=== PATIENT | male | born 1940 | race Caucasian/White ===

== ENCOUNTER 2017-03-19 04:55 | Inpatient (IN) | payer MEDICARE, OTHER ==
--- NOTE | ~2017-03-19 | HP ---
History And Physical [address] [place]. [address] NAME: JARROD YOON : 38 STATUS : ADM IN PAT#: [id number] AGE: 76 ADM/REG DATE : 03/19/17 MR#: [id number] REPORT SERV DATE: 03/19/17 DICTATED BY: CEFERINO GARCIA DATE: 03/19/17 REPORT STATUS : Draft TRANSCRIBED BY: MODJoe DATE: 03/19/17 DATE OF ADMISSION: 03/19/2017 REFERRING REASON: Chest pain and elevated troponin. HISTORY OF PRESENT ILLNESS: This is a pleasant 76-year-old, white gentleman, well known to Dr. Mcguire from [facility], who was admitted last night to Cardiology Service from the emergency room where he presented around 3 a.m. in the morning for severe substernal chest pressure which kept him awake. The patient has known coronary artery disease with remote history of CABG at [facility] in 2004 with several myocardial infarctions in 1994 and 2003. The last coronary arteriogram was in 2010, which revealed a patent venous graft to obtuse marginal and to LAD, but otherwise, calcific severe three-vessel disease. He had preserved systolic function at that time reportedly. The patient has elevated fasting glucose, but decided to take only cinnamon for it. He has seen insights strategist last time in 2016. In the absence of Dr. Mcguire, he saw Dr. Kaur, but then decided not to return for followup. The patient, basically stopped all the cardiac medication. He was taking only cinnamon. Surprisingly, he denies any recent chest pain until last night. He has one-day episode of mild dyspnea on exertion with activity but not at rest. He denied any palpitations, syncope, or lower extremity edema. The denied any recent chest pains. REVIEW OF SYSTEMS: The rest of review of systems is negative. PAST MEDICAL HISTORY: 1. Coronary artery disease with history of CABG in 2004, with last coronary arteriogram in 2010, without intervention. 2. Reported several myocardial infarctions in the past, most recent one in 2003. 3. Reported a history of preserved systolic function in 2010 by echocardiogram. 4. Hypertension, hyperlipidemia. 5. Likely untreated diabetes mellitus. 6. History of tongue cancer, treated with surgery in the remote past without chemotherapy or radiation. ALLERGIES: NO KNOWN DRUG ALLERGIES. SOCIAL HISTORY: The patient is . He is retired. He lives independently. He quit smoking 40 years ago, smoked for a few years. Denies drinking alcohol or using street drugs. FAMILY HISTORY: Negative for sudden cardiac deaths or premature coronary artery disease in the family. HOME MEDICATIONS: Cinnamon daily and vitamin. History And Physical [address] [address] NAME: JARROD YOON : 38 STATUS : ADM IN PAT#: [id number] AGE: 76 ADM/REG DATE : 03/19/17 MR#: [id number] REPORT SERV DATE: 03/19/17 DICTATED BY: CEFERINO GARCIA DATE: 03/19/17 REPORT STATUS : Draft TRANSCRIBED BY: MAVERICK DATE: 03/19/17 PHYSICAL EXAMINATION: GENERAL: No acute distress. VITAL SIGNS: Blood pressure 184/97, heart rate 94 and regular. HEENT: Pupils reactive to light and accommodation. Moist mucosa membrane. NECK: No JVD. Normal carotid upstroke. No carotid bruits. LUNGS: There are crackles at the bases of both lungs. COR: Normal S1, S2. No S3 or S4. No significant rub or murmurs. ABDOMEN: Obese, distended, nontender. EXTREMITIES: Lower extremities, decreased pedal pulses bilaterally but no edema. SKIN: Warm with normal turgor. MS: No kyphosis. NEURO/PSY: Alert and oriented. Nonfocal. DATA: CBC and electrolytes within normal limits. There is creatinine of 1.2, fasting glucose 230, BNP 341, troponin is 27. Chest x-ray was obtained, but the results are not available. Electrocardiogram revealed normal sinus rhythm, 87 beats per minute with signs of LVH and anteroseptal-inferior myocardial infarction with Q-waves. On monitor, he remained normal sinus rhythm. ASSESSMENT/PLAN: 1. Acute coronary syndrome/non ST-elevation myocardial infarction. 2. Diabetes mellitus. 3. Likely congestive heart failure. The patient will be closely monitored on monitored bed. We will continue intravenous heparin, aspirin, and nitroglycerin paste. We will start him on carvedilol, DARYL inhibitor, and statin. We will proceed tomorrow with coronary arteriogram. The risks and benefits were explained to the patient. He agreed to proceed. If he will be unstable, we will proceed tonight. We will also plan for echocardiogram tomorrow. We will ask our hospitalist colleagues to manage his newly diagnosed diabetes mellitus. I will give him intravenous diuretics for his lung congestion. Very likely, he has congestive heart failure. He will be started on electrolyte replacement protocol. Code status is full. The patient will see tomorrow Dr. Mcguire. OJL/ARMANDOL Ceferino Garcia M.D. / [id number] CC: Cayetano Gonzalez M.D.
--- NOTE | ~2017-03-19 | CN ---
Consultation Report [facility] [address] [place]. [address] NAME: JARROD YOON : 38 STATUS : ADM IN PAT#: [id number] AGE: 76 ADM/REG DATE : 03/19/17 MR#: [id number] REPORT SERV DATE: 03/19/17 DICTATED BY: ANGELICA MAGDALENO DATE: 03/19/17 REPORT STATUS : Draft TRANSCRIBED BY: MODL DATE: 03/19/17 CONSULTATION. DATE OF CONSULTATION: REASON FOR CONSULTATION: Diabetes mellitus. HISTORY OF PRESENT ILLNESS: This is a 76-year-old male patient who does have a history of CABG in 2004, came to the hospital with chest pain, started last night. Please see dictated H and P. HOSPITAL COURSE: The patient was admitted to hospital with chest pain and the patient was found to have diabetes according to the random blood glucose level and Hospitalist Service was called. According to the patient's information and history, he was diabetic and was on oral antidiabetic medication years ago. He said his primary care physician previously, Dr. Anirudh Barnes in [place] told him he has no longer diabetes anymore and at that time, he stopped all his medications and checking his blood sugar. He also said he has not been followed for diabetic diet anymore for the last few years. He normally eats 4 banana, ice cream sandwich, and then fried pig skin 2 to 3 bags a day and also he uses his , and he goes out to dinner for [place] food and he lives alone. He still drives a car and then he says he cooks his meal at home, but diet was mentioned above. He does not check his sugar as well. When he presented to the emergency room last night, his blood sugar was 230 and this morning, his blood sugar is being around 182 in the fasting lab. For his chest pain, he was diagnosed with a ega-KN-stsxdlvau SD with a troponin level of 27. The patient is scheduled to go for cardiac catheterization tomorrow. Currently, he does not have any symptoms including chest pain. He has no short of breath. No chest pain. He does not feel like he has dyspnea on exertion. He does not have any urinary tract symptoms or bowel movement change. No syncopes. No palpitation. No seizures. No vision changes. PAST MEDICAL HISTORY: 1. Coronary artery disease, status post CABG 2004. 2. Hypertension. 3. History of lung cancer, status post surgery and lymph node resection. 4. Chronic disease. 5. Also, he was diagnosed with tongue cancer 2007. Consultation Report [address] [address] NAME: JARROD YOON : 38 STATUS : ADM IN PAT#: [id number] AGE: 76 ADM/REG DATE : 03/19/17 MR#: [id number] REPORT SERV DATE: 03/19/17 DICTATED BY: ANGELICA MAGDALENO DATE: 03/19/17 REPORT STATUS : Draft TRANSCRIBED BY: MAVERICK DATE: 03/19/17 6. History of diabetes. SOCIAL HISTORY: He does not smoke. He quit smoking more than 50 years ago. He denies any alcohol use. He lives alone. He still drives a car. He still mows his own yard. He does have 2 children. MEDICATIONS AT HOME: 1. Vitamin C once a day. 2. Cinnamon 1000 mg once a day. 3. Centrum once a day. FAMILY HISTORY: Noncontributory for this illness. PHYSICAL EXAMINATION: VITAL SIGNS: Blood pressure 150/95, pulse is 93, temperature is 97.9, respiratory rate is 18, and saturation is 99% on room air. GENERAL APPEARANCE: He is alert, awake, very pleasant, male patient. HEENT: Pupils are equal, round, and reactive to light. EOMI intact. Conjunctivae not anemic. NECK: There are no nodes palpable. Carotid bruits audible on the left side. LUNGS: Both bases have crackles, otherwise clear. CARDIOVASCULAR: No murmur, rub, or gallop. He has a regular rhythm and rate. ABDOMEN: Bowel sounds present. Soft. There was no organomegaly appreciated. EXTREMITIES: There was no pitting edema. LABORATORY DATA: Laboratory showed sodium 140, potassium 4.5, chloride 107, BUN 21, and creatinine 1.21. WBC 8.3, hemoglobin 14.3, hematocrit of 44.3, and platelets 193. Troponin was 27. BNP was 341. Chest x-ray was evaluated by my own interpretation showed bibasilar vascular congestion. ASSESSMENT AND PLAN: 1. Diabetes mellitus. 2. Vpw-RF-jffpbppmo myocardial infarction. 3. Peripheral vascular disease. 4. ? cardiomyopathy. The patient is going through the cardiac workup for cardiology evaluation. We will obtain diabetic education again provided glucometer and then put him on the sliding scale for now and consider adding oral medication based on his other systems including the renal function. We will obtain A1c levels. He voiced understanding about the current plan of care. Consultation Report [id number] [facility] [place]. [address] NAME: JARROD YOON : 38 STATUS : ADM IN PAT#: [id number] AGE: 76 ADM/REG DATE : 03/19/17 MR#: [id number] REPORT SERV DATE: 03/19/17 DICTATED BY: ANGELICA MAGDALENO DATE: 03/19/17 REPORT STATUS : Draft TRANSCRIBED BY: MODJoe DATE: 03/19/17 EKL/MAVERICK Angelica Magdaleno M.D. / [id number] CC: Cayetano Gonzalez M.D.
[2017-03-19 04:15] LABS: BASOPHILS 0.2 %; BASOPHILS ABSOLUTE 0.02 10/3/uL (0.0-0.16); EOSINOPHILS 0.8 %; EOSINOPHILS ABSOLUTE 0.07 10/3/uL (0.0-0.53); HEMATOCRIT 44.3 % (40.0-51.0); HEMOGLOBIN 14.3 g/dL (13.6-17.8); IMMATURE GRANULOCYTES 0.4 %; IMMATURE GRANULOCYTES ABSOLUTE 0.03 10/3/uL (0.0-0.11); LYMPHOCYTES 17.2 %; LYMPHOCYTES ABSOLUTE 1.43 10/3/uL (0.67-4.30); MEAN CORPUS HGB CONC 32.3 g/dL (32.0-36.0); MEAN CORPUSCULAR HEMOGLOB 28.9 pg (26.0-34.0); MEAN CORPUSCULAR VOLUME 89.7 fL (80-100); MEAN PLATELET VOLUME 11.4 fL (9.2-13.0); MONOCYTES 8.4 %; NEUTROPHILS ABSOLUTE 6.08 10/3/uL (2.02-8.40); PLATELET COUNT 193 10/3/uL (150-400); RBC DISTRIBUTION WIDTH 14.2 % (12.0-16.0); RED CELL COUNT 4.94 10/6/uL (4.7-6.1); WHITE BLOOD CELLS 8.3 10/3/uL (4.5-10.5)
[2017-03-19 04:16] LABS: MANUAL DIFF NO %
[2017-03-19 04:30] LABS: CALCIUM, SERUM 8.9 MG/DL (8.5-10.4); CHLORIDE, SERUM 107 MMOL/L (96-112); CO2 (CARBON DIOXIDE) 28 MMOL/L (24-34); CREATININE 1.21 MG/DL (0.70-1.30); GFR AFRICAN AMERICAN 66 ML/MIN (>=60); GFR NON AFRICAN AMERICAN 57 ML/MIN (>=60); POTASSIUM, SERUM 4.5 MMOL/L (3.5-5.3); SODIUM, SERUM 140 MMOL/L (135-148)
[2017-03-19 04:31] LABS: PARTIAL THROMBO TIME 26.4 SEC (22.5-37.2); PROTIME (NOT ORD) 13.1 SEC (12.0-14.5)
[2017-03-19 04:37] LABS: BUN (BLOOD UREA NITROGEN) 21 MG/DL (6-23); GLUCOSE, SERUM 230 MG/DL (60-99)
[2017-03-19 04:38] LABS: CHEST PAIN PROFILE TAT 0 Hrs 29 Mins
[~2017-03-19 04:55] MED LIST: CINNAMON +CHROMIUM PO; COREG25 PO; DIOVAN HCT160 MG/25 PO; FLAXSEED OIL1000 MG PO; GARLIC PO; HALF81 PO; SAW PALMETTO PO; VITC500 PO; VITE PO
[2017-03-19] MEDS ORDERED: CENTRUM PO (05:17)
[2017-03-19] MEDS ORDERED: CINNAMONPO PO (05:18)
[2017-03-19] MEDS ORDERED: VITC500 PO (05:18)
[2017-03-19 08:43] LABS: CHOL/HDL RATIO(NOT ORDER) 7.1 (0-5); CHOLESTEROL 233 MG/DL (< 200); HDL CHOLESTEROL 33 MG/DL (> 39); LDL CHOLESTEROL 183 MG/DL (< 130); NON-HDL CHOLESTEROL 200 MG/DL (< 160); SGPT(ALT) 38 U/L (5-65); TRIGLYCERIDE 89 MG/DL (< 150)
[2017-03-19 10:17] LABS: CHOL/HDL RATIO(NOT ORDER) 6.1 (0-5); TROPONIN I 30.9 NG/ML (<0.05)
[2017-03-19 12:38] LABS: ASCORBIC ACID (UR NOT ORDER) 20 (NEG); BILIRUBIN, URINE NEGATIVE (NEG); KETONE, URINE NEGATIVE (NEG); LEUKOCYTE ESTERASE(NOT OR SMALL (NEG); WBC (NOT ORDERED) (RFLEX) 3 (0-5)
[2017-03-20 07:04] LABS: BASOPHILS 0.2 %; BASOPHILS ABSOLUTE 0.02 10/3/uL (0.0-0.16); EOSINOPHILS 0.5 %; EOSINOPHILS ABSOLUTE 0.05 10/3/uL (0.0-0.53); HEMOGLOBIN 14.3 g/dL (13.6-17.8); IMMATURE GRANULOCYTES 0.3 %; IMMATURE GRANULOCYTES ABSOLUTE 0.03 10/3/uL (0.0-0.11); LYMPHOCYTES 17.4 %; LYMPHOCYTES ABSOLUTE 1.65 10/3/uL (0.67-4.30); MEAN CORPUS HGB CONC 32.5 g/dL (32.0-36.0); MEAN CORPUSCULAR HEMOGLOB 28.8 pg (26.0-34.0); MEAN CORPUSCULAR VOLUME 88.5 fL (80-100); MEAN PLATELET VOLUME 11.4 fL (9.2-13.0); MONOCYTES 12.7 %; NEUTROPHILS 68.9 %; NEUTROPHILS ABSOLUTE 6.52 10/3/uL (2.02-8.40); PLATELET COUNT 173 10/3/uL (150-400); RED CELL COUNT 4.97 10/6/uL (4.7-6.1); WHITE BLOOD CELLS 9.5 10/3/uL (4.5-10.5)
[2017-03-20 07:10] LABS: MANUAL DIFF NO %
[2017-03-20 07:21] LABS: BUN (BLOOD UREA NITROGEN) 20 MG/DL (6-23); CALCIUM, SERUM 8.9 MG/DL (8.5-10.4); CHLORIDE, SERUM 102 MMOL/L (96-112); CO2 (CARBON DIOXIDE) 24 MMOL/L (24-34); CREATININE 1.12 MG/DL (0.70-1.30); GFR AFRICAN AMERICAN 73 ML/MIN (>=60); GFR NON AFRICAN AMERICAN 63 ML/MIN (>=60); GLUCOSE, SERUM 211 MG/DL (60-99); SODIUM, SERUM 135 MMOL/L (135-148)
[2017-03-21 05:18] LABS: BASOPHILS 0.1 %; BASOPHILS ABSOLUTE 0.01 10/3/uL (0.0-0.16); EOSINOPHILS 0.5 %; EOSINOPHILS ABSOLUTE 0.04 10/3/uL (0.0-0.53); HEMATOCRIT 40.8 % (40.0-51.0); HEMOGLOBIN 13.8 g/dL (13.6-17.8); IMMATURE GRANULOCYTES 0.4 %; IMMATURE GRANULOCYTES ABSOLUTE 0.03 10/3/uL (0.0-0.11); LYMPHOCYTES 14.2 %; MANUAL DIFF NO %; MEAN CORPUS HGB CONC 33.8 g/dL (32.0-36.0); MEAN CORPUSCULAR HEMOGLOB 29.5 pg (26.0-34.0); MEAN CORPUSCULAR VOLUME 87.2 fL (80-100); MEAN PLATELET VOLUME 11.1 fL (9.2-13.0); MONOCYTES 12.9 %; MONOCYTES ABSOLUTE 1.09 10/3/uL (0.21-1.20); NEUTROPHILS 71.9 %; NEUTROPHILS ABSOLUTE 6.07 10/3/uL (2.02-8.40); PLATELET COUNT 169 10/3/uL (150-400); RBC DISTRIBUTION WIDTH 14.1 % (12.0-16.0); RED CELL COUNT 4.68 10/6/uL (4.7-6.1); WHITE BLOOD CELLS 8.4 10/3/uL (4.5-10.5)
[2017-03-21 05:27] LABS: BUN (BLOOD UREA NITROGEN) 18 MG/DL (6-23); CALCIUM, SERUM 8.9 MG/DL (8.5-10.4); CHLORIDE, SERUM 104 MMOL/L (96-112); CO2 (CARBON DIOXIDE) 24 MMOL/L (24-34); CREATININE 1.24 MG/DL (0.70-1.30); GFR AFRICAN AMERICAN 64 ML/MIN (>=60); GFR NON AFRICAN AMERICAN 55 ML/MIN (>=60); GLUCOSE, SERUM 184 MG/DL (60-99); POTASSIUM, SERUM 4.1 MMOL/L (3.5-5.3); SODIUM, SERUM 136 MMOL/L (135-148)
[2017-03-22] MEDS ORDERED: ASAB PO (09:15)
[2017-03-22] MEDS ORDERED: LIPITOR80 MG PO (09:16)
[2017-03-22] MEDS ORDERED: COREG12 PO (09:16)
[2017-03-22] MEDS ORDERED: PLAVIX PO (09:17)
[2017-03-22] MEDS ORDERED: NTG150 SL (09:20)
[2017-03-22] MEDS ORDERED: AMARYL1 MG PO (10:58)
[2017-03-31] MEDS ORDERED: COREG12 PO (21:41)
[2017-03-31] MEDS ORDERED: PLAVIX PO (21:41)
[2017-03-31] MEDS ORDERED: LIPITOR80 MG PO (21:41)
[2017-03-31] MEDS ORDERED: AMARYL1 MG PO (21:41)
[2017-03-31] MEDS ORDERED: NITROSTAT0.4 MG SL (21:42)
== END 2017-03-22 14:48 | disposition home or self-care (01) | DRG 246 ==
LOC: ER 04:55 → 5NO 06:02 → SSU1 03-20 11:12 → 5NO 03-21 11:17
PROVIDERS: Internal Medicine Cardiovascular Disease; Specialist; Thoracic Surgery (Cardiothoracic Vascular Surgery)
PROC: 4A023N7 Measurement of Cardiac Sampling and Pressure, Left Heart, Percutaneous Approach (ICD-10-PCS; principal; 2017-03-20)
PROC: 027034Z Dilation of Coronary Artery, One Artery with Drug-eluting Intraluminal Device, Percutaneous Approach (ICD-10-PCS; 2017-03-20)
PROC: B2111ZZ Fluoroscopy of Multiple Coronary Arteries using Low Osmolar Contrast (ICD-10-PCS; 2017-03-20)
PROC: B2151ZZ Fluoroscopy of Left Heart using Low Osmolar Contrast (ICD-10-PCS; 2017-03-20)
PROC: B2131ZZ Fluoroscopy of Multiple Coronary Artery Bypass Grafts using Low Osmolar Contrast (ICD-10-PCS; 2017-03-20)
PROC: B2181ZZ Fluoroscopy of Left Internal Mammary Bypass Graft using Low Osmolar Contrast (ICD-10-PCS; 2017-03-20)
DX: I21.4 Non-ST elevation (NSTEMI) myocardial infarction (principal); I50.21 Acute systolic (congestive) heart failure; I25.810 Atherosclerosis of coronary artery bypass graft(s) without angina pectoris; E11.9 Type 2 diabetes mellitus without complications; Z95.1 Presence of aortocoronary bypass graft; Z85.118 Personal history of other malignant neoplasm of bronchus and lung; Z85.810 Personal history of malignant neoplasm of tongue; Z87.891 Personal history of nicotine dependence; I73.9 Peripheral vascular disease, unspecified; I11.0 Hypertensive heart disease with heart failure
CPT/HCPCS: 71010; 71020; 80048; 80061; 81001; 82962; 83036; 83735; 83880; 84460; 84484; 85025; 85610; 85730; 87086; 93005; 93459; 99152; 99153; A9270-GY; C1725; C1760; C1769; C1874; C1887; C8929; C9600; J0583; J2250; J3010; Q9957; Q9967

== ENCOUNTER 2017-03-23 20:47 | Emergency (ER) | payer MEDICARE, OTHER ==
[~2017-03-23 20:47] MED LIST changes: +AMARYL1 MG PO; +ASAB PO; +CENTRUM PO; +CINNAMONPO PO; +COREG12 PO; +LIPITOR80 MG PO; +NTG150 SL; +PLAVIX PO
[2017-03-23 21:06] LABS: BASOPHILS 0.1 %; BASOPHILS ABSOLUTE 0.01 10/3/uL (0.0-0.16); EOSINOPHILS 1.9 %; EOSINOPHILS ABSOLUTE 0.13 10/3/uL (0.0-0.53); HEMATOCRIT 38.9 % (40.0-51.0); HEMOGLOBIN 13.2 g/dL (13.6-17.8); IMMATURE GRANULOCYTES 0.3 %; IMMATURE GRANULOCYTES ABSOLUTE 0.02 10/3/uL (0.0-0.11); LYMPHOCYTES 13.5 %; LYMPHOCYTES ABSOLUTE 0.91 10/3/uL (0.67-4.30); MEAN CORPUS HGB CONC 33.9 g/dL (32.0-36.0); MEAN CORPUSCULAR HEMOGLOB 29.5 pg (26.0-34.0); MEAN CORPUSCULAR VOLUME 86.8 fL (80-100); MEAN PLATELET VOLUME 11.8 fL (9.2-13.0); MONOCYTES ABSOLUTE 0.94 10/3/uL (0.21-1.20); NEUTROPHILS 70.2 %; NEUTROPHILS ABSOLUTE 4.71 10/3/uL (2.02-8.40); PLATELET COUNT 211 10/3/uL (150-400); RBC DISTRIBUTION WIDTH 14.1 % (12.0-16.0); RED CELL COUNT 4.48 10/6/uL (4.7-6.1); WHITE BLOOD CELLS 6.7 10/3/uL (4.5-10.5)
[2017-03-23 21:07] LABS: MANUAL DIFF NO %
[2017-03-23 21:18] LABS: INTERNATIONAL NORMAL RATI 1.2 UNITS (-); PROTIME (NOT ORD) 14.6 SEC (12.0-14.5)
[2017-03-23 21:19] LABS: PARTIAL THROMBO TIME 35.2 SEC (22.5-37.2)
[2017-03-23 21:28] LABS: CALCIUM, SERUM 8.5 MG/DL (8.5-10.4); CHLORIDE, SERUM 104 MMOL/L (96-112); CO2 (CARBON DIOXIDE) 25 MMOL/L (24-34); CREATININE 1.28 MG/DL (0.70-1.30); GFR AFRICAN AMERICAN 62 ML/MIN (>=60); GFR NON AFRICAN AMERICAN 53 ML/MIN (>=60); POTASSIUM, SERUM 4.3 MMOL/L (3.5-5.3); SODIUM, SERUM 137 MMOL/L (135-148)
[2017-03-23 21:29] LABS: BUN (BLOOD UREA NITROGEN) 26 MG/DL (6-23); CHEST PAIN PROFILE TAT 0 Hrs 29 Mins; GLUCOSE, SERUM 97 MG/DL (60-99); TROPONIN I 6.26 NG/ML (<0.05)
[2017-03-31] MEDS ORDERED: AMARYL1 MG PO (21:41)
[2017-03-31] MEDS ORDERED: LIPITOR80 MG PO (21:41)
[2017-03-31] MEDS ORDERED: PLAVIX PO (21:41)
[2017-03-31] MEDS ORDERED: COREG12 PO (21:41)
[2017-03-31] MEDS ORDERED: NITROSTAT0.4 MG SL (21:42)
== END 2017-03-23 22:37 | disposition home or self-care (01) ==
LOC: ER 20:47
PROVIDERS: Nurse Practitioner
DX: I25.10 Atherosclerotic heart disease of native coronary artery without angina pectoris (principal); I25.2 Old myocardial infarction; Z95.1 Presence of aortocoronary bypass graft; E11.9 Type 2 diabetes mellitus without complications; Z85.810 Personal history of malignant neoplasm of tongue; Z87.891 Personal history of nicotine dependence; Z79.899 Other long term (current) drug therapy; Z79.82 Long term (current) use of aspirin
CPT/HCPCS: 71010; 80048; 83735; 84484; 85025; 85610; 85730; 93005; 99285

== ENCOUNTER 2017-03-31 22:09 | Inpatient (IN) | payer MEDICARE, OTHER ==
--- NOTE | ~2017-03-31 | HP ---
History And Physical [id number] [place]. [address] NAME: JARROD YOON : 38 STATUS : ADM IN [facility]#: [id number] AGE: 76 ADM/REG DATE : 03/31/17 MR#: [id number] REPORT SERV DATE: 04/01/17 DICTATED BY: TY HELMS DATE: 04/01/17 REPORT STATUS : Draft TRANSCRIBED BY: MODL DATE: 04/01/17 DATE OF ADMISSION: 03/31/2017 HISTORY OF PRESENT ILLNESS: Mr. Yoon is a 76-year-old white male, who was here two weeks ago with a non-ST elevation KS, troponin reached 30. Subsequent to that, he did receive a stent to a protected left main feeding a diagonal branch. He was found to have significant diffuse small-vessel disease involving the to LAD and also involving the right coronary artery which has had severe disease for many years. Those were treated medically. The patient says he felt better after the stent procedure and has had no chest discomfort that was when he presented with initially two weeks ago. However, he did experience rapid and severe shortness of breath. Last night came into the emergency room with a blood pressure of 200/100 and flash pulmonary edema on his chest x-ray. He was in respiratory distress, but responded to IV Lasix, to IV nitroglycerin, and also to BiPAP. This morning, he is feeling much better, but still has some mild shortness of breath. His blood pressure is controlled. PAST MEDICAL HISTORY: As outlined above. ALLERGIES: NONE. MEDICATIONS: Lipitor, Coreg, Plavix, aspirin, glimepiride, and sublingual nitroglycerin as needed. SOCIAL HISTORY: He is a nonsmoker. FAMILY HISTORY: Positive for heart disease. SURGICAL HISTORY: As listed above. REVIEW OF SYSTEMS: Otherwise, all negative. PHYSICAL EXAMINATION: VITAL SIGNS: Initial blood pressure 200/120, now that is 126/60, heart rate initially 120, now that 77. GENERAL: The patient is a somewhat elderly frail appearing white male. He is slightly forgetful. HEENT: Pupils equal, round, and reactive to light and accommodation. Extraocular muscles intact. NECK: Supple. Trachea midline. No carotid bruits. CHEST: Clear. HEART: PMI midclavicular line. Regular rate and rhythm. No significant murmur. ABDOMEN: Soft, nontender. EXTREMITIES: No clubbing, cyanosis, or edema. NEURO: Nonfocal. History And Physical [address] [address] NAME: JARROD YOON : 38 STATUS : ADM IN PAT#: [id number] AGE: 76 ADM/REG DATE : 03/31/17 MR#: [id number] REPORT SERV DATE: 04/01/17 DICTATED BY: TY HELMS DATE: 04/01/17 REPORT STATUS : Draft TRANSCRIBED BY: MODL DATE: 04/01/17 DATA: His current troponin is 1.17. He has a BNP of 700. He has a creatinine of 1.49. We have an echo from 03/20/2017 showing EF 30% with inferior akinesis and apical dyskinesis. We have a 12-lead EKG that shows sinus rhythm with an incomplete left bundle branch block. CLINICAL IMPRESSIONS: 1. Flash pulmonary edema with a blood pressure of 200/100. 2. Had a drug-coated stent to a protected left main two weeks ago. He did feel better after the stent with no further chest pain. 3. Non-ST elevation myocardial infarction two weeks ago with troponin of 30. 4. Current troponin 1.17. 5. An echocardiogram performed 03/20/2017 showing ejection fraction 30%. PLAN: 1. We will recheck his echo for mechanical complication from his event two weeks ago. 2. We will check cardiac enzymes. 3. Check a renal artery duplex. 4. Possible heart catheterization, relook at the stent and other anatomy on Monday. In the meantime, we will give him gentle diuresis and also IV heparin. [facility]/MAVERICK Ty Helms M.D. / [id number] CC: Ty Helms M.D.
--- NOTE | ~2017-03-31 | DS ---
Discharge Summary [facility] [address] [place]. [address] NAME: JARROD YOON : 38 STATUS : DIS IN PAT#: [id number] AGE: 76 ADM/REG DATE : 03/31/17 MR#: [id number] REPORT SERV DATE: 04/15/17 DICTATED BY: CHUY MCGUIRE DATE: 04/14/17 REPORT STATUS : Draft TRANSCRIBED BY: MAVERICK DATE: 04/14/17 Data Collection from hospitalization DISCHARGE DIAGNOSES: 1. Acute/chronic systolic congestive heart failure. 2. Coronary artery disease. 3. Nonsustained ventricular tachycardia. 4. Type 2 diabetes mellitus. 5. Hypertension. 6. History of xws-FN-rxprlfurn myocardial infarction. 7. Hyperlipidemia. 8. History of tongue cancer. 9. History of lung cancer. 10.Former smoker. CONSULTATION: Dr. Lam Mercado. PROCEDURES PERFORMED: 1. Cardiac catheterization, 04/04/2017. 2. Color flow ultrasound of the kidneys, 04/01/2017. MEDICATIONS: Lipitor 80 mg at bedtime, Norvasc 5 mg twice a day, aspirin 81 mg daily, Coreg 25 mg twice a day, Plavix 75 mg daily, Isordil 40 mg twice a day, Lasix 20 mg daily with KCl 10 mEq daily as needed for two pounds weight gain or more in 48 hours, Nitrostat 0.4 mg sublingually as needed. CONDITION AT DISCHARGE: Stable. DISPOSITION: The patient was discharged to [facility] on a low-sodium, 1800- calorie cardiac/diabetic diet with activities as instructed. He would follow up with me, 04/14/2017. He would follow up with Dr. Barry Mock, 06/13/2017. He would follow up for an outpatient echo, 06/06/2017. HOSPITAL COURSE: This is a 76-year-old man, who had presented here two weeks prior to this admission with a lij-RM-bweaedukk myocardial infarction. Troponin had reached 30. Subsequent to that, he did receive a stent to a protected left main feeding a diagonal branch. He was found to have significant diffuse small vessel disease, involving the to the LAD and also involving the right coronary artery, which has had severe disease for many years. Those were treated medically. The patient said he was feeling better after the stent procedure. He had no chest discomfort; however, he did begin to experience rapid and severe shortness of breath. On the night prior to this admission, he came to the emergency room and was found to have a blood pressure of 200/100 and flash pulmonary edema on his chest x-ray. He was in respiratory distress, but responded to IV Lasix and IV nitroglycerin and also to BiPAP. On the morning of this admission, he was feeling much better, but still had some mild shortness of breath. His blood pressure was controlled. He was admitted to the hospital at this time for further evaluation and treatment. Upon admission, his troponin was 1.17. BNP was 700. He had a creatinine level of 1.49. Discharge Summary [address] [address] NAME: JARROD YOON : 38 STATUS : DIS IN [facility]#: [id number] AGE: 76 ADM/REG DATE : 03/31/17 MR#: [id number] REPORT SERV DATE: 04/15/17 DICTATED BY: CHUY MCGUIRE DATE: 04/14/17 REPORT STATUS : Draft TRANSCRIBED BY: MAVERICK DATE: 04/14/17 His echocardiogram from 03/20/2017 showed an ejection fraction of 30% with inferior akinesis and apical dyskinesis. A 12-lead EKG showed sinus rhythm with incomplete left bundle-branch block. We were going to recheck his echo for mechanical complication from his event two weeks ago. We were also going to check cardiac enzymes and renal artery duplex. It was felt that he may possibly need to undergo a cardiac catheterization to relook at the stent and other anatomy. In the mean time, he would receive gentle diuresis and IV heparin. Color flow ultrasound of the kidneys was performed. There was no evidence of renal artery stenosis. Echocardiogram was performed. The patient was seen by Dr. Lam Mercado regarding type 2 diabetes mellitus management. The patient does have type 2 diabetes mellitus and hypertension. At this time, his chronic medical problems were stable and treatment of adz-FG-xthcuomdq myocardial infarction would be deferred to the primary team. His recommendation was to discontinue glimepiride as this was long-acting and if the patient remained n.p.o., this may cause severe hypoglycemia. He was going to be started on level 2 sliding scale insulin. We would check a hemoglobin A1c for comparison. He reports that his glucoses have been well managed on glimepiride down in the 90s to the 110s. At this time, there was no need for diabetic education or other intervention. He had recently obtained this during his previous admissions. The following day, telemetry revealed nonsustained ventricular tachycardia. Troponin was now 1.2. Chest x-ray showed probable pulmonary edema. Echocardiogram showed ejection fraction of 30%. Coreg dose was increased. Gentle IV diuretic was being provided. He was in no distress. It was planned to perform a cardiac catheterization in the next couple of days. His oral metformin would be resumed at discharge. He had no complaints of chest pain. On the , he was taken to the [facility], where he underwent the above-mentioned procedure by Dr. Xavier Gonsales. He tolerated this well and there were no complications. On 04/05/2017, he was alert and cooperative. His lungs were clear. He had no edema. He was being diuresed as needed. Arrangements were being made for a LifeVest to be placed. He continued to do well. He said he was feeling good. He was evaluated by Physical Therapy. His daily weights and sodium restriction were discussed. We reviewed daily weights and sodium restriction as well as the use of Lasix as needed for two pounds weight gain/48 hours. Discharge planning was performed. On 04/08/2017, he was comfortable. The LifeVest was in place. Discharge instructions were given. Due to his improved and stable condition, he was discharged to [facility] with the above-stated instructions. Information collected by: Laura Chowdhury I submit the above information as my discharge summary. TG/MODL Chuy Mcguire M.D. / [id number] CC: Xavier Gonsales M.D. [facility]
--- NOTE | ~2017-03-31 | CN ---
Consultation Report [facility] [address] [place]. [address] NAME: JARROD YOON : 38 STATUS : ADM IN PAT#: [id number] AGE: 76 ADM/REG DATE : 03/31/17 MR#: [id number] REPORT SERV DATE: 04/01/17 DICTATED BY: LAM MERCADO DATE: 04/01/17 REPORT STATUS : Draft TRANSCRIBED BY: MODL DATE: 04/01/17 CONSULTATION DATE OF CONSULTATION: 04/01/2017 REASON FOR CONSULTATION: Type 2 diabetes mellitus management. IMPRESSION: 1. Type 2 diabetes mellitus. 2. Hypertension. 3. Zla-WR-osvuqgelf myocardial infarction. 4. Coronary artery disease with a decreased ejection fraction of 30%. 5. Hyperlipidemia. 6. History of tongue cancer in 2007, treated surgically. 7. History of lung cancer, status post surgery and node resection. PLAN: At this time, his chronic medical problems are stable and treatment of non-ST- elevation myocardial infarction will be deferred to the primary team. My recommendation will be to discontinue glimepiride as this is long-acting and if the patient remains n.p.o. this may cause severe hypoglycemia. We will start patient on level 2 sliding scale insulin. We will check a hemoglobin A1c for comparison as he was here approximately 30 days ago and he reports that his glucoses have been well managed on glimepiride down in the 90s to 1 teens. At this time, there is no need for diabetic education or other intervention as he just recently had that on his previous admission. We thank you for this consultation and we will follow with you. BRIEF HISTORY OF PRESENT ILLNESS: The patient is a 76-year-old male presented again to the hospital with what appeared to be a xus-ZI-vgctkkoka myocardial infarction with an elevated troponin. So, he was admitted by Cardiology. Medicine Service was consulted because the patient has diabetes and needed further management. This patient denies any hypoglycemia. He has not had any nausea, vomiting. He currently has no chest pain. He has not had any fever, chills, or any other constitutional symptoms. REVIEW OF SYSTEMS: A 10-point review of systems otherwise is negative. PAST MEDICAL HISTORY: Coronary artery disease, status post CABG in 2004, hypertension, history of lung cancer, status post surgery and lymph node resection, chronic obstructive pulmonary disease. He also was diagnosed with tongue cancer with resection in 2007. He supposedly had a history of type 2 diabetes mellitus. PAST SURGICAL HISTORY: As mentioned in the past medical history. ALLERGIES: NO KNOWN DRUG ALLERGIES. Consultation Report [address] [place]. [address] NAME: JARROD YOON : 38 STATUS : ADM IN PAT#: [id number] AGE: 76 ADM/REG DATE : 03/31/17 MR#: [id number] REPORT SERV DATE: 04/01/17 DICTATED BY: LAM MERCADO DATE: 04/01/17 REPORT STATUS : Draft TRANSCRIBED BY: MAVERICK DATE: 04/01/17 HOME MEDICATIONS: Lipitor 80 mg once at bedtime, Coreg 12.5 mg twice daily, Plavix 75 mg once daily, glimepiride 1 mg twice daily, Nitrostat 0.4 sublingual p.r.n. for chest pain. SOCIAL HISTORY: He does not smoke. He quit smoking more than 50+ years ago. He denies any alcohol use. He lives alone. He still drives car and is active and self sufficient in all ADLs. FAMILY HISTORY: Noncontributory for this encounter reviewed with the patient. PHYSICAL EXAMINATION: GENERAL: White male sitting on the chair appears to be in no obvious respiratory distress. He is awake and alert. He is oriented. VITAL SIGNS: Blood pressure is 124/61, pulse is 72, temperature is 96.5, saturation of 97% on 3 L of nasal cannula. HEENT: Normal. Oropharynx without lesions. NECK: Supple. HEART: Regular rate and rhythm. No murmurs, rubs, or gallops are heard. LUNGS: Clear to auscultation. ABDOMEN: Soft, nontender. Good bowel sounds. EXTREMITIES: Without cyanosis, clubbing, or edema. There are no lesions. NEUROLOGICAL: Seems to be grossly intact. LABORATORY DATA: Sodium of 135, potassium 4.5, chloride is 103, bicarb is 23, BUN is 15, creatinine is 1.49. Last creatinine on previous admission was 1.24 and 1.28. His glucose was 265. Liver function studies are negative. Troponin is 1.68. His BNP on this admission was 769. Last known hemoglobin on 03/19/2017 was 7.6. CBC was completely normal. Chest x-ray, severe failure, vkfw-rd-tbwthfet cardiomegaly. Renal artery duplex are done, but report is pending. Once again, we thank you for this consultation. We will follow with you. NANCY/MAVERICK Lam Mercado M.D. / [id number] CC: Xavier Gonsales M.D.
[2017-03-31 21:46] LABS: BASOPHILS 0.2 %; BASOPHILS ABSOLUTE 0.02 10/3/uL (0.0-0.16); EOSINOPHILS 1.5 %; EOSINOPHILS ABSOLUTE 0.13 10/3/uL (0.0-0.53); HEMATOCRIT 42.7 % (40.0-51.0); HEMOGLOBIN 14.1 g/dL (13.6-17.8); IMMATURE GRANULOCYTES 0.5 %; IMMATURE GRANULOCYTES ABSOLUTE 0.04 10/3/uL (0.0-0.11); LYMPHOCYTES 18.7 %; LYMPHOCYTES ABSOLUTE 1.58 10/3/uL (0.67-4.30); MEAN CORPUSCULAR HEMOGLOB 29.1 pg (26.0-34.0); MEAN CORPUSCULAR VOLUME 88.2 fL (80-100); MEAN PLATELET VOLUME 11.6 fL (9.2-13.0); MONOCYTES 10.2 %; MONOCYTES ABSOLUTE 0.86 10/3/uL (0.21-1.20); NEUTROPHILS 68.9 %; NEUTROPHILS ABSOLUTE 5.82 10/3/uL (2.02-8.40); RBC DISTRIBUTION WIDTH 13.9 % (12.0-16.0); RED CELL COUNT 4.84 10/6/uL (4.7-6.1); WHITE BLOOD CELLS 8.5 10/3/uL (4.5-10.5)
[2017-03-31 21:47] LABS: MANUAL DIFF NO %; PLATELET COUNT 365 10/3/uL (150-400)
[2017-03-31 21:55] LABS: INTERNATIONAL NORMAL RATI 1.2 UNITS (-); PARTIAL THROMBO TIME 29.9 SEC (22.5-37.2); PROTIME (NOT ORD) 15.2 SEC (12.0-14.5)
[2017-03-31 22:03] LABS: BUN (BLOOD UREA NITROGEN) 15 MG/DL (6-23); CALCIUM, SERUM 8.5 MG/DL (8.5-10.4); CHEST PAIN PROFILE TAT 0 Hrs 23 Mins; CHLORIDE, SERUM 103 MMOL/L (96-112); CO2 (CARBON DIOXIDE) 23 MMOL/L (24-34); CREATININE 1.49 MG/DL (0.70-1.30); GFR AFRICAN AMERICAN 51 ML/MIN (>=60); GFR NON AFRICAN AMERICAN 44 ML/MIN (>=60); GLUCOSE, SERUM 265 MG/DL (60-99); POTASSIUM, SERUM 4.5 MMOL/L (3.5-5.3); SODIUM, SERUM 135 MMOL/L (135-148); TROPONIN I 1.17 NG/ML (<0.05)
[~2017-03-31 22:09] MED LIST changes: +NITROSTAT0.4 MG SL
[2017-04-01 10:49] LABS: CK-MB 3.9 NG/ML; CPK 82 U/L (0-200); TROPONIN I 1.68 NG/ML (<0.05)
[2017-04-01 18:36] LABS: CK-MB 2.8 NG/ML; CPK 67 U/L (0-200); TROPONIN I 1.22 NG/ML (<0.05)
[2017-04-02 05:37] LABS: BASOPHILS 0.2 %; BASOPHILS ABSOLUTE 0.01 10/3/uL (0.0-0.16); EOSINOPHILS 2.7 %; EOSINOPHILS ABSOLUTE 0.15 10/3/uL (0.0-0.53); IMMATURE GRANULOCYTES 0.2 %; IMMATURE GRANULOCYTES ABSOLUTE 0.01 10/3/uL (0.0-0.11); LYMPHOCYTES 24.5 %; LYMPHOCYTES ABSOLUTE 1.35 10/3/uL (0.67-4.30); MEAN CORPUSCULAR HEMOGLOB 28.9 pg (26.0-34.0); MEAN CORPUSCULAR VOLUME 87.4 fL (80-100); MEAN PLATELET VOLUME 11.5 fL (9.2-13.0); MONOCYTES 9.2 %; MONOCYTES ABSOLUTE 0.51 10/3/uL (0.21-1.20); NEUTROPHILS 63.2 %; NEUTROPHILS ABSOLUTE 3.49 10/3/uL (2.02-8.40); PLATELET COUNT 294 10/3/uL (150-400); RBC DISTRIBUTION WIDTH 13.8 % (12.0-16.0); RED CELL COUNT 3.88 10/6/uL (4.7-6.1); WHITE BLOOD CELLS 5.5 10/3/uL (4.5-10.5)
[2017-04-02 05:49] LABS: HEMATOCRIT 33.9 % (40.0-51.0); HEMOGLOBIN 11.2 g/dL (13.6-17.8)
[2017-04-02 05:50] LABS: MANUAL DIFF NO %
[2017-04-02 05:54] LABS: A/G RATIO 0.7 (0.7-1.9); ALBUMIN 2.3 G/DL (3.5-5.0); ALKALINE PHOSPHATASE 70 U/L (45-117); CALCIUM, SERUM 8.2 MG/DL (8.5-10.4); CHLORIDE, SERUM 105 MMOL/L (96-112); CO2 (CARBON DIOXIDE) 26 MMOL/L (24-34); CREATININE 1.12 MG/DL (0.70-1.30); GFR AFRICAN AMERICAN 73 ML/MIN (>=60); GFR NON AFRICAN AMERICAN 63 ML/MIN (>=60); GLOBULIN 3.5 G/DL (2.5-4.1); POTASSIUM, SERUM 3.8 MMOL/L (3.5-5.3); SGOT(AST) 22 U/L (5-40); SGPT(ALT) 31 U/L (5-65); SODIUM, SERUM 139 MMOL/L (135-148); TOTAL BILIRUBIN 0.5 MG/DL (0-1.2); TOTAL PROTEIN 5.8 G/DL (6.0-8.5)
[2017-04-02 05:55] LABS: BUN (BLOOD UREA NITROGEN) 20 MG/DL (6-23); GLUCOSE, SERUM 111 MG/DL (60-99)
[2017-04-03 01:29] LABS: BASOPHILS 0.3 %; BASOPHILS ABSOLUTE 0.02 10/3/uL (0.0-0.16); EOSINOPHILS 2.9 %; EOSINOPHILS ABSOLUTE 0.18 10/3/uL (0.0-0.53); HEMATOCRIT 36.9 % (40.0-51.0); HEMOGLOBIN 12.1 g/dL (13.6-17.8); IMMATURE GRANULOCYTES 0.3 %; IMMATURE GRANULOCYTES ABSOLUTE 0.02 10/3/uL (0.0-0.11); LYMPHOCYTES 21.3 %; LYMPHOCYTES ABSOLUTE 1.32 10/3/uL (0.67-4.30); MEAN CORPUS HGB CONC 32.8 g/dL (32.0-36.0); MEAN CORPUSCULAR HEMOGLOB 28.7 pg (26.0-34.0); MEAN CORPUSCULAR VOLUME 87.6 fL (80-100); MONOCYTES 12.1 %; MONOCYTES ABSOLUTE 0.75 10/3/uL (0.21-1.20); NEUTROPHILS 63.1 %; NEUTROPHILS ABSOLUTE 3.91 10/3/uL (2.02-8.40); PLATELET COUNT 303 10/3/uL (150-400); RBC DISTRIBUTION WIDTH 13.6 % (12.0-16.0); RED CELL COUNT 4.21 10/6/uL (4.7-6.1); WHITE BLOOD CELLS 6.2 10/3/uL (4.5-10.5)
[2017-04-03 01:30] LABS: MANUAL DIFF NO %
[2017-04-03 01:43] LABS: BUN (BLOOD UREA NITROGEN) 22 MG/DL (6-23); CALCIUM, SERUM 8.5 MG/DL (8.5-10.4); CHLORIDE, SERUM 103 MMOL/L (96-112); CO2 (CARBON DIOXIDE) 25 MMOL/L (24-34); CREATININE 1.31 MG/DL (0.70-1.30); GFR AFRICAN AMERICAN 60 ML/MIN (>=60); GFR NON AFRICAN AMERICAN 52 ML/MIN (>=60); POTASSIUM, SERUM 4.3 MMOL/L (3.5-5.3); SODIUM, SERUM 137 MMOL/L (135-148)
[2017-04-03 01:44] LABS: GLUCOSE, SERUM 136 MG/DL (60-99)
[2017-04-04 05:11] LABS: BASOPHILS 0.5 %; BASOPHILS ABSOLUTE 0.03 10/3/uL (0.0-0.16); EOSINOPHILS 3.7 %; EOSINOPHILS ABSOLUTE 0.21 10/3/uL (0.0-0.53); HEMATOCRIT 37.1 % (40.0-51.0); HEMOGLOBIN 12.3 g/dL (13.6-17.8); IMMATURE GRANULOCYTES 0.4 %; IMMATURE GRANULOCYTES ABSOLUTE 0.02 10/3/uL (0.0-0.11); LYMPHOCYTES 27.4 %; LYMPHOCYTES ABSOLUTE 1.56 10/3/uL (0.67-4.30); MANUAL DIFF NO %; MEAN CORPUS HGB CONC 33.2 g/dL (32.0-36.0); MEAN CORPUSCULAR HEMOGLOB 28.9 pg (26.0-34.0); MEAN CORPUSCULAR VOLUME 87.1 fL (80-100); MONOCYTES 11.1 %; MONOCYTES ABSOLUTE 0.63 10/3/uL (0.21-1.20); NEUTROPHILS 56.9 %; NEUTROPHILS ABSOLUTE 3.24 10/3/uL (2.02-8.40); PLATELET COUNT 323 10/3/uL (150-400); RBC DISTRIBUTION WIDTH 13.7 % (12.0-16.0); RED CELL COUNT 4.26 10/6/uL (4.7-6.1); WHITE BLOOD CELLS 5.7 10/3/uL (4.5-10.5)
[2017-04-04 05:18] LABS: INTERNATIONAL NORMAL RATI 1.2 UNITS (-)
[2017-04-04 05:27] LABS: BUN (BLOOD UREA NITROGEN) 20 MG/DL (6-23); CALCIUM, SERUM 8.9 MG/DL (8.5-10.4); CHLORIDE, SERUM 104 MMOL/L (96-112); CO2 (CARBON DIOXIDE) 23 MMOL/L (24-34); CREATININE 1.12 MG/DL (0.70-1.30); GFR AFRICAN AMERICAN 73 ML/MIN (>=60); GFR NON AFRICAN AMERICAN 63 ML/MIN (>=60); GLUCOSE, SERUM 143 MG/DL (60-99); POTASSIUM, SERUM 4.5 MMOL/L (3.5-5.3); SODIUM, SERUM 136 MMOL/L (135-148); TRIGLYCERIDE 77 MG/DL (< 150)
[2017-04-04 05:33] LABS: CHOLESTEROL 116 MG/DL (< 200); HDL CHOLESTEROL 29 MG/DL (> 39); LDL CHOLESTEROL 72 MG/DL (< 130); NON-HDL CHOLESTEROL 87 MG/DL (< 160)
[2017-04-06 05:10] LABS: CALCIUM, SERUM 8.8 MG/DL (8.5-10.4); CHLORIDE, SERUM 106 MMOL/L (96-112); CO2 (CARBON DIOXIDE) 26 MMOL/L (24-34); CREATININE 0.99 MG/DL (0.70-1.30); GFR AFRICAN AMERICAN 84 ML/MIN (>=60); GFR NON AFRICAN AMERICAN 73 ML/MIN (>=60); GLUCOSE, SERUM 143 MG/DL (60-99); POTASSIUM, SERUM 4.8 MMOL/L (3.5-5.3); SODIUM, SERUM 138 MMOL/L (135-148)
[2017-04-06 05:11] LABS: BUN (BLOOD UREA NITROGEN) 15 MG/DL (6-23)
[2017-04-06] MEDS ORDERED: NORV5 PO (11:10)
[2017-04-06] MEDS ORDERED: COREG25 PO (11:11)
[2017-04-06] MEDS ORDERED: ASAB PO (11:11)
[2017-04-06] MEDS ORDERED: ISORDTITRA PO (11:13)
[2017-04-06] MEDS ORDERED: L20 PO (11:15)
== END 2017-04-08 16:10 | DRG 281 ==
LOC: ER 22:09 → 6NO 23:18
PROVIDERS: Emergency Medicine; Internal Medicine Interventional Cardiology
PROC: 4A023N7 Measurement of Cardiac Sampling and Pressure, Left Heart, Percutaneous Approach (ICD-10-PCS; principal; 2017-04-04)
PROC: B2111ZZ Fluoroscopy of Multiple Coronary Arteries using Low Osmolar Contrast (ICD-10-PCS; 2017-04-04)
PROC: B2151ZZ Fluoroscopy of Left Heart using Low Osmolar Contrast (ICD-10-PCS; 2017-04-04)
PROC: B2181ZZ Fluoroscopy of Left Internal Mammary Bypass Graft using Low Osmolar Contrast (ICD-10-PCS; 2017-04-04)
PROC: B2131ZZ Fluoroscopy of Multiple Coronary Artery Bypass Grafts using Low Osmolar Contrast (ICD-10-PCS; 2017-04-04)
DX: I11.0 Hypertensive heart disease with heart failure (principal); I21.4 Non-ST elevation (NSTEMI) myocardial infarction; I47.2 Ventricular tachycardia; I50.23 Acute on chronic systolic (congestive) heart failure; I25.10 Atherosclerotic heart disease of native coronary artery without angina pectoris; E11.9 Type 2 diabetes mellitus without complications; E78.00 Pure hypercholesterolemia, unspecified; I25.2 Old myocardial infarction; E78.5 Hyperlipidemia, unspecified; I25.5 Ischemic cardiomyopathy; J44.9 Chronic obstructive pulmonary disease, unspecified; Z85.118 Personal history of other malignant neoplasm of bronchus and lung; Z95.5 Presence of coronary angioplasty implant and graft; Z95.1 Presence of aortocoronary bypass graft; Z79.82 Long term (current) use of aspirin; Z87.891 Personal history of nicotine dependence; Z85.810 Personal history of malignant neoplasm of tongue; Z79.84 Long term (current) use of oral hypoglycemic drugs; Z79.02 Long term (current) use of antithrombotics/antiplatelets
CPT/HCPCS: 36600; 71010; 71020; 80048; 80053; 80061; 82330; 82550; 82553; 82803; 82947; 82962; 83036; 83735; 83880; 84132; 84295; 84484; 85014; 85025; 85347; 85610; 85730; 93005; 93325; 93459; 93975; 94660; 96365; 96366; 96375; 97162-GP; 97530-GP; 99152; 99153; 99285; A9270-GY; C1769; C8924; G8978-CK-GP; G8979-CJ-GP; J1940; J2250; J3010; Q9957; Q9967